=== PATIENT | female | born 1935 | race Caucasian/White ===

== ENCOUNTER 2019-05-01 07:27 | Inpatient (IN) | payer MEDICARE, OTHER | END 2019-05-02 19:25 | LOC: DAHIP 07:27 → 4AH 11:42 | PROC: 0SRD0JA Replacement of Left Knee Joint with Synthetic Substitute, Uncemented, Open Approach (ICD-10-PCS; principal; 2019-05-01 09:20) | DX: M17.12 Unilateral primary osteoarthritis, left knee (principal) ==